=== PATIENT | male | born 1985 | race Caucasian/White ===

== ENCOUNTER 2017-04-11 17:36 | Emergency (ER) | payer BC ==
[2017-04-11] MEDS ORDERED: predniSONE 20 MG Tab PO ONE (19:54)
[2017-04-11] MEDS ORDERED: Take Home: Acetaminophen/Codeine 300 MG/30 MG, 5 Tab Pack PO ONE (19:55)
[2017-04-11] MEDS ORDERED: valACYclovir 1,000 MG Tab ONE (20:15)
--- NOTE | 2017-04-12 04:26 | EDM.PDOC ---
ED HPI GENERAL MEDICAL PROBLEM - General Chief Complaint: Skin Complaint Stated Complaint: FOREHEAD IRRITATION Time Seen by Provider: 04/11/17 18:00 Source of Information: Reports: Patient History Limitations: Reports: No Limitations - History of Present Illness INITIAL COMMENTS - FREE TEXT/NARRATIVE: Pt. states that he developed superficial pain to the L side of his forehead several days ago. He states that gradually, he developed erythema and vesicular lesions on the area. He states that he is not experiencing any fever or chills, and states that they are isolated to his left forehead. He states that he has had chicken pox as a child. Denies any other constitutional symptoms or exposure to varicella virus. Location: Reports: Head Quality: Reports: Burning Severity: Mild Left Head Pain Score (Numeric/FACES): 8 - Related Data Allergies Allergy/AdvReac Type Severity Reaction Status Date / Time Penicillins Allergy Swelling Verified 04/11/17 19:42 Home Meds: Home Meds valACYclovir HCl [valACYclovir] 1,000 mg PO Q8HR #3 tablet 04/11/17 [Rx] Past Medical History - Past Health History Medical/Surgical History: Denies Medical/Surgical History Social & Family History - Tobacco Use Smoking Status *Q: Never Smoker ED ROS GENERAL - Review of Systems Review Of Systems: See Below Constitutional: Reports: No Symptoms HEENT: Reports: Other (pain, erythema and vesicles to L forehead ) Respiratory: Reports: No Symptoms Cardiovascular: Reports: No Symptoms Endocrine: Reports: No Symptoms GI/Abdominal: Reports: No Symptoms : Reports: No Symptoms Musculoskeletal: Reports: No Symptoms Skin: Reports: Other (Please see HEENT and HPI) Neurological: Reports: No Symptoms Psychiatric: Reports: No Symptoms ED EXAM, SKIN/RASH Exam: See Below Exam Limited By: No Limitations General Appearance: Alert, WD/WN, No Apparent Distress Eye Exam: Bilateral Eye: EOMI, Normal Fundi, Normal Inspection, PERRL Ears: Normal External Exam, Hearing Grossly Normal Nose: Normal Inspection, Normal Mucosa, No Blood Throat/Mouth: Normal Inspection, Normal Lips, Normal Teeth, No Airway Compromise Head: Other (see skin exam) Neck: Normal Inspection, Supple Respiratory/Chest: No Respiratory Distress, Lungs Clear, Normal Breath Sounds, No Accessory Muscle Use, Chest Non-Tender Cardiovascular: Normal Peripheral Pulses, Regular Rate, Rhythm, No Edema, No Murmur, No Rub Neurological: Alert, Oriented, CN II-XII Intact, Normal Cognition Skin: Warm, Dry, Intact (erythematous area with vesicles noted to L forehead area) Location, Skin: Head Characteristics: Vesicular, Erythematous Associated features: Inflammation Lymphatic: Adenopathy (L anterior cervical lymphadenopathy) Course - Vital Signs Last Recorded V/S: Last Vital Signs Temp 36.4 C 04/11/17 19:42 Pulse 60 04/11/17 19:42 Resp 16 04/11/17 19:42 BP 136/61 04/11/17 19:42 Pulse Ox 97 04/11/17 19:42 - Orders/Labs/Meds Meds: Medications Discontinued Medications Generic Name Dose Route Start Last Admin Trade Name Ericksonq PRN Reason Stop Dose Admin Acetaminophen/Codeine Phosphate 1 packet 04/11/17 19:55 04/11/17 20:17 Take Home: Acetam/Codeine 300-30 Mg, 5 Pack PO 04/11/17 19:56 1 packet ONETIME ONE Administration Prednisone 40 mg 04/11/17 19:54 04/11/17 20:16 Prednisone PO 04/11/17 19:55 40 mg ONETIME ONE Administration Valacyclovir HCl Confirm 04/11/17 20:15 04/11/17 20:17 Valtrex Administered 04/11/17 20:16 Not Given Dose 3,000 mg .ROUTE .STK-MED ONE Departure - Departure Time of Disposition: 20:26 Disposition: Home, Self-Care 01 Condition: Good Clinical Impression: Shingles, Varicella zoster - Discharge Information Prescriptions: valACYclovir HCl [valACYclovir] 1,000 mg PO Q8HR #3 tablet Instructions: Shingles, [id number] Referrals: Kit Batista PA-C [Primary Care Provider] - Forms: ED Department Discharge Additional Instructions: Valacyclovir 1000mg every 8 hours Prednisone 40mg once daily until gone Tylenol #3 1 every 4-6 hours as needed for pain Follow-up in clinic in 10-14 days for recheck Keep loosely covered until on the valacyclovir until .
== END 2017-04-11 20:26 | disposition home or self-care (01) ==
LOC: VM.ED 17:36
DX: B01.9 Varicella without complication (principal); B02.9 Zoster without complications; Z88.0 Allergy status to penicillin
CPT/HCPCS: 99282; A9270